=== PATIENT | male | born 1955 | race Caucasian/White ===

== ENCOUNTER 2020-12-05 12:47 | Emergency (ER) | payer SELFPAY ==
[~2020-12-05] VITALS: Ht 172.7 cm; Wt 71.0 kg
[2020-12-05 13:04] VITALS: BP 130/80
[2020-12-05 13:23] LABS: BASOPHILS % 0.2 % (0.0-2.0); HEMATOCRIT. 46.1 % (42.0-52.0); HEMOGLOBIN. 15.3 g/dL (14.0-18.0); LYMPHOCYTES % 10.6 % (20.0-50.0); MEAN CORPUSCULAR HEMOGLOBIN 28.2 pg (28.0-32.0); MEAN CORPUSCULAR VOLUME 84.8 fL (80.0-94.0); MEAN PLATELET VOLUME 9.2 fl (7.4-10.4); MONOCYTES % 6.4 % (2.0-8.0); NEUTROPHILS % 82.8 % (40.0-76.0); PLATELET 200 x1000/uL (130-400); RED BLOOD CELL COUNT 5.43 mill/uL (4.7-6.1); RED CELL DISTRIBUTION WIDTH 14.1 % (11.6-14.6)
[2020-12-05 13:31] LABS: CHLORIDE 101 mEq/L (98-107)
[2020-12-05 13:33] LABS: INR 1.1; PROTHROMBIN TIME 11.7 sec (9.6-11.0)
[2020-12-05] MEDS ORDERED: AMOX-424 MT (14:33)
[2020-12-05] MEDS ORDERED: DOXY150T5 MT (14:33)
[2020-12-05] MEDS ORDERED: DOXY100C2 MT (14:34)
== END 2020-12-05 15:10 | disposition home or self-care (01) ==
LOC: ER 12:47
DX: U07.1 COVID-19 (principal)
CPT/HCPCS: 36415; 71045; 80053; 85025; 87635; 99284